=== PATIENT | male | born 1955 | race African-American/Black ===

== ENCOUNTER 2016-10-27 19:06 | Emergency (ER) | payer OTHER ==
[~2016-10-27] VITALS: Ht 170.2 cm; Wt 75.0 kg
[2016-10-28] MEDS ORDERED: KETOROLAC 30MG/ML VIAL IV STA (04:05)
[2016-10-28] MEDS ORDERED: BACITRACIN ZINC OINT UDPKT TOP ONE (04:15)
[2016-10-28] MEDS ORDERED: LIDOCAINE HCL 1% 20ML VIAL (Pyxis) INJ MC ONE (04:15)
[2016-10-28] MEDS ORDERED: VANCOMYCIN 1 G PREMIX 200 ML IV ONE (04:15)
[2016-10-28 05:00] VITALS: BP 126/75
== END 2016-10-28 07:15 | disposition home or self-care (01) ==
LOC: ER 19:06
DX: L02.415 Cutaneous abscess of right lower limb (principal); T63.301A Toxic effect of unspecified spider venom, accidental (unintentional), initial encounter; F17.200 Nicotine dependence, unspecified, uncomplicated; Y92.89 Other specified places as the place of occurrence of the external cause
CPT/HCPCS: 10060; 96365; 96366; 96375; 99285; J1885; J3370; J3490; Z7610